=== PATIENT | female | born 1995 | race Hispanic/Latino ===

== ENCOUNTER 2017-12-03 09:15 | Inpatient (IN) | payer OTHER ==
[~2017-12-03] VITALS: Ht 154.9 cm; Wt 73.6 kg
[~2017-12-03 09:15] MED LIST: ASCORBIC ACID500 M3 PO; ASPIRIN81 M2 PO; DOCUSATE SODIU100 MG PO; ENDOCET 5-3251 EACH PO; FERROUS SULFAT325 MG PO; IBUPROFEN800 MG PO; PRENATAL TABLE1 EAC3 PO; PRENATAL TABLE1 EACH PO
[2017-12-03 10:00] VITALS: BP 113/58
[2017-12-03 10:17] LABS: BASOPHIL (%) 0.4 % (0-1); EOSINOPHIL (%) 0.6 % (0-5); HEMATOCRIT 39.2 % (36.0-46.0); HEMOGLOBIN 12.2 G/DL (11.9-15.5); IMMATURE GRANULOCYTE (%) 0.6 % (0.0-0.7); LYMPHOCYTE (%) 15.3 % (15-42); LYMPHOCYTE COUNT 1.1 K/uL (1.0-2.8); MCH 24.3 PG (29.0-34.0); MCHC 31.1 G/DL (30.0-36.0); MCV 78.1 FL (83-99); MONOCYTE COUNT 0.5 K/uL (0-0.8); NEUTROPHIL (%) 76.1 % (45-76); NEUTROPHIL COUNT 5.5 K/uL (1.8-6.4); PLATELET COUNT 284 K/uL (156-360); RBC DIS.WIDTH-CV 17.5 % (11.8-14.6); RBC DIS.WIDTH-SD 49.1 % (39-53); RED BLOOD COUNT 5.02 M/uL (3.80-5.20); WHITE BLOOD COUNT 7.2 K/uL (4.1-10.2)
[2017-12-03 13:47] VITALS: BP 109/54
[2017-12-03 17:24] VITALS: BP 105/56
[2017-12-03 20:09] VITALS: BP 98/52
[2017-12-03 21:08] VITALS: BP 96/52
[2017-12-03 22:49] VITALS: BP 107/53
[2017-12-04 03:39] VITALS: BP 99/58
[2017-12-04 06:49] LABS: BASOPHIL (%) 0.5 % (0-1); EOSINOPHIL (%) 0.9 % (0-5); EOSINOPHIL COUNT 0.1 K/uL (0-0.3); HEMATOCRIT 31.8 % (36.0-46.0); IMMATURE GRANULOCYTE (%) 0.4 % (0.0-0.7); LYMPHOCYTE COUNT 1.1 K/uL (1.0-2.8); MCH 24.7 PG (29.0-34.0); MCHC 31.4 G/DL (30.0-36.0); MCV 78.5 FL (83-99); MONOCYTE (%) 7.8 % (3-12); MONOCYTE COUNT 0.6 K/uL (0-0.8); NEUTROPHIL (%) 75.4 % (45-76); NEUTROPHIL COUNT 5.6 K/uL (1.8-6.4); PLATELET COUNT 222 K/uL (156-360); RBC DIS.WIDTH-CV 17.5 % (11.8-14.6); RBC DIS.WIDTH-SD 49.5 % (39-53); RED BLOOD COUNT 4.05 M/uL (3.80-5.20); WHITE BLOOD COUNT 7.4 K/uL (4.1-10.2)
[2017-12-04 07:30] VITALS: BP 114/59
[2017-12-04 12:19] VITALS: BP 108/51
[2017-12-04 14:50] VITALS: BP 105/61
[2017-12-05 08:25] VITALS: BP 115/67
[2017-12-05] MEDS ORDERED: FERROUS SULFAT325 MG PO (09:20)
[2017-12-05] MEDS ORDERED: ENDOCET 5-3251 EACH PO (09:20)
[2017-12-05] MEDS ORDERED: IBUPROFEN800 MG PO (09:20)
== END 2017-12-05 14:50 | disposition home or self-care (01) | DRG 766 ==
LOC: 2WEST 09:15 → 2SOUTH 11:57 → 2WEST 12-05 14:50
PROVIDERS: Obstetrics & Gynecology
PROC: 10D00Z1 Extraction of Products of Conception, Low, Open Approach (ICD-10-PCS; principal; 2017-12-03)
DX: O34.211 Maternal care for low transverse scar from previous cesarean delivery (principal); Z37.0 Single live birth; N85.8 Other specified noninflammatory disorders of uterus; O99.824 Streptococcus B carrier state complicating childbirth; Z3A.39 39 weeks gestation of pregnancy; E66.3 Overweight; Z68.25 Body mass index [BMI] 25.0-25.9, adult
CPT/HCPCS: 85025; 86850; 86900; 86901; J0690; J1200; J2274; J3010; J7120